=== PATIENT | male | born 1990 | race Two or more races ===

== ENCOUNTER 2024-05-29 16:13 | Emergency (ER) | payer OTHER, SELFPAY ==
[2024-05-29 16:23] VITALS: BP 138/89
[2024-05-29 17:24] VITALS: BMI 25.4
--- NOTE | 2024-05-29 18:04 | ED.GENMED ---
History of Present Illness
General
Chief Complaint: Ear Problem
Source: patient
Time Seen by Provider: 05/29/24 17:56
History of Present Illness
History of Present Illness:
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 Patient started having body aches about 1 week ago. He started to have subjective fever starting
yesterday. He also started to have pain behind bilateral ears yesterday. He woke up today with severe pain behind his right ear. Patient is currently in [employer] school and he is worried that he has mastoiditis. He has been taking ibuprofen for his
symptoms. He denies any sore throat, ear pain, cough, neck stiffness. Patient is otherwise asymptomatic.
Phy Exam
General Physical Exam
General Presentation: well appearing and no apparent distress
General age: appears stated age
General Skin: warm and dry
General Habitus: normal
General Mental: alert
ENT Exam
ENT Exam: TM's normal, neck supple, normocephalic and other (There is mild soft tissue swelling and erythema overlying the R mastoid process with tenderness)
Cardiovascular Exam
Cardiovascular Exam: regular rate/rhythm
Pulmonary Exam
Pulmonary Exam: lungs clear, no respiratory distress, no crackles and no wheezing
Sammy Coma Scale
Eye Opening: Spontaneous
Verbal Response: Oriented
Motor Response: Obeys Commands
GCS Total Score: 15
Skin Exam
Skin Exam: normal color and warm/dry
Psychiatric Exam
Psychiatric Exam: normal mood/affect
Course
Orders/Labs/Results
Orders:
Orders
05/29/24 18:03
CT Temporal-iac W/ Iv Contrast Urgent
Comment:
Reason For Exam: R mastoid tenderness
05/29/24 18:09
Basic Metabolic Panel Urgent
Complete Blood Count/With Diff Urgent
05/29/24 21:18
Cephalexin Monohydrate [Keflex] 500 mg PO NOW STA
Abnormal Lab Results
05/29/24
18:09
Immature Gran % 0.6 H %
(0-0.5)
Monocytes % 12.4 H %
(1.7-9.3)
BUN 25 H mg/dl
(9-20)
Glucose 102 H mg/dl
(70-99)
05/29/24 18:09
05/29/24 18:09
Vital Signs
Initial and Last Documented VS:
Initial Vital Signs
Temp Pulse Resp BP Pulse Ox
98.0 F 90 18 138/89 97
05/29/24 16:23 05/29/24 16:23 05/29/24 16:23 05/29/24 16:23 05/29/24 16:23
Last Documented Vital Signs
Temp Pulse Resp BP Pulse Ox
98.2 F 76 20 115/81 99
05/29/24 20:02 05/29/24 20:02 05/29/24 20:02 05/29/24 20:02 05/29/24 20:02
MDM/Problems Addressed
Differential Diagnosis Includes:
33yoM here with pain behind R ear and concern for mastoiditis. No ear pain. +Subjective fevers. He is afebrile and hemodynamically stable. He is well-appearing in no acute distress. There is soft tissue swelling and mild erythema overlying the
right mastoid process. Right tympanic membrane appears normal. Exam otherwise reassuring. Differential diagnosis includes but is not limited to: Mastoiditis, cellulitis, lymphadenopathy
Initial ED plan: Check CBC, BMP, and CT temporal bones.
*Critical Care Note
Total Time (30-74mins, 75-104mins- exclusive of procedures): Not Applicable
Update Note
Update Note:
Labs unremarkable including normal white count. Mastoid cells appear clear on CT. There is subtle stranding within the subcutaneous soft tissues of the inferior scalp suggesting inflammation/cellulitis. Imaging also shows possible empty sella
syndrome. Patient was informed of incidental finding and provided with a copy of his CT scan report. Will start on Keflex to cover for cellulitis. He was advised to follow-up with his PCP. ED return precautions discussed. He was discharged in
stable condition.
ED Attending Note
-
Portions of this chart may have been created with voice recognition software.� Occasional wrong word or��sound alike� substitutions may have occurred due to the inherent limitations of voice recognition software.
Discharge Plan
Departure
Patient Disposition: Home (Routine Discharge)
Date of Disposition: 05/29/24
Time of Disposition: 21:18
Patient with high blood pressure during this ER visit?: No
Discharge Problem:
Cellulitis of scalp
Instructions: Cellulitis (Skin Infection), Adult ED
Prescriptions:
New
cephalexin 500 mg capsule
500 mg PO Q6H 7 Days Qty: 27 0RF
Referrals:
NONE,* [Family Provider] -
Activity Restrictions/Additional Instructions:
Take antibiotics as prescribed. Take ibuprofen as needed for pain.
Please follow-up with your family doctor. Return to the ER with any worsening symptoms.
Interventions
Interventions:
*Risk Screen - Suicide Last Done: 05/29/24 17:24
*General Assessment Last Done: 05/29/24 17:24
*Neglect/Abuse Screening Last Done: 05/29/24 17:24
ED- Fall Risk Assessment Last Done: 05/29/24 17:24
*ED COVID-19 Vaccine History Last Done: 05/29/24 17:24
*Nursing Disposition Last Done: 05/29/24 21:25
Discharge Date and Time
Discharge Date/Time: 05/29/24 21:26
Print Language: [id number]
[2024-05-29 18:20] LABS: % Basophils 0.4 % (0-2); % Eosinophils 0.4 % (0-6); % Immature Granulocytes 0.6 % (0-0.5); % Lymphocytes 30.4 % (20.5-51.1); % Monocytes 12.4 % (1.7-9.3); % Neutrophils 55.8 % (42.2-75.2); Absolute Lymphocytes 1.5 10^3/uL (1.2-3.4); Absolute Monocytes 0.6 10^3/uL (0.1-0.6); Absolute Neutrophils 2.7 10^3/uL (1.4-6.5); Hematocrit 46.7 % (39.0-52.0); Hemoglobin 16.1 g/dL (13.0-18.0); Mean Corp Hgb Conc. 34.5 g/dL (33.0-37.0); Mean Corpuscular Hgb 30.6 pg (27.0-31.0); Mean Corpuscular Volume 88.8 fL (80.0-94.0); Mean Platelet Volume 9.8 fL (7.4-10.4); Nucleated Red Blood Cells % 0 % (-); Platelet Count 190 10^3/uL (130-400); Red Blood Cell Count 5.26 10^6/uL (4.70-6.10); Red Cell Dist. Width 12.2 % (11.5-14.5); White Blood Cell Count 4.8 10^3/uL (4.8-10.8)
[2024-05-29 18:37] LABS: Blood Urea Nitrogen 25 mg/dl (9-20); Calcium 9.2 mg/dl (8.4-10.2); Carbon Dioxide 30 mmol/L (22-30); Chloride 102 mmol/L (98-107); Estimated Creatinine Clearance 116 ml/min; Glucose 102 mg/dl (70-99); Potassium 4.7 mmol/L (3.5-5.1); Sodium 142 mmol/L (135-145); eGFR > 60.00
[2024-05-29 20:02] VITALS: BP 115/81
[2024-05-29] MEDS: KEFLEX 500 MG PO (21:22)
== END 2024-05-29 21:26 | disposition home or self-care (01) ==
LOC: EMR 16:13
PROVIDERS: Physician Assistant; EMERGENCY PHYSICIAN Emergency Medicine
DX: L03.811 Cellulitis of head [any part, except face] (principal)
CPT/HCPCS: 99284; 70481; 80048; 85025; Q9967